=== PATIENT | female | born 1985 | race Caucasian/White ===

== ENCOUNTER 2021-07-14 06:04 | Emergency (ER) | payer MEDICAID, OTHER ==
[~2021-07-14] VITALS: Ht 165.1 cm; Wt 97.7 kg
[2021-07-14 11:08] VITALS: BP 131/79
== END 2021-07-14 11:10 | disposition home or self-care (01) ==
LOC: EMS 06:08
DX: S30.1XXA Contusion of abdominal wall, initial encounter (principal); V89.2XXA Person injured in unspecified motor-vehicle accident, traffic, initial encounter; W22.12XA Striking against or struck by front passenger side automobile airbag, initial encounter; Y93.89 Activity, other specified; Y92.89 Other specified places as the place of occurrence of the external cause; Y99.8 Other external cause status
CPT/HCPCS: 76700; 82962; 99284

== ENCOUNTER 2023-02-06 21:26 | Emergency (ER) | payer OTHER ==
[~2023-02-06] VITALS: Ht 165.1 cm; Wt 86.4 kg
[2023-02-06 22:01] VITALS: TEMP 98.6
[2023-02-06 22:31] LABS: GLUCOMETER DEV NAME(LOC) ERT.5
[2023-02-07 00:45] VITALS: BP 145/99; PULSE 98; RESP 17
[2023-02-07 00:49] LABS: ANION GAP 11 mmol/L (8-16); CALCIUM, TOTAL 9.4 mg/dL (8.8-10.5); CARBON DIOXIDE 29 mmol/L (22-29); CHLORIDE 97 mmol/L (98-107); CREATININE 0.84 mg/dL (0.60-1.30); GLOMERULAR FILTR. RATE CALC > 60 mL/min (>60); POTASSIUM 3.7 mmol/L (3.5-5.1); SODIUM SERUM 136 mmol/L (136-145)
[2023-02-07 01:03] LABS: GLUCOSE,RANDOM 431 mg/dL (70-110)
[2023-02-07] MEDS ORDERED: INSULIN REGULAR, HUMAN 100 UNITS/ML IVP ONE (01:15)
[2023-02-07 01:26] LABS: GLUCOMETER DEV NAME(LOC) ER.6
[2023-02-07] MEDS ORDERED: SODIUM CHLORIDE 0.9% 1,000 ML IV ONE ×2 (01:30)
[2023-02-07 02:41] LABS: GLUCOMETER DEV NAME(LOC) ER.6
== END 2023-02-07 02:25 | disposition home or self-care (01) ==
LOC: EMS 21:27
DX: E11.65 Type 2 diabetes mellitus with hyperglycemia (principal); L84 Corns and callosities; R03.0 Elevated blood-pressure reading, without diagnosis of hypertension
CPT/HCPCS: 99283; 80048; 36415; 96374; 96361; 82962; J7030 ×2; J1815; 82948